=== PATIENT | male | born 1940 | race Caucasian/White ===

== ENCOUNTER 2021-05-12 08:47 | Inpatient (IN) | payer MEDICARE, MEDICAID ==
[~2021-05-12] VITALS: Ht 180.3 cm; Wt 79.4 kg
[~2021-05-12 08:47] MED LIST: ALBUTEROL1.25 MG/3 INH; ASPIRIN 325MG325 MG PO; ASPIRIN EC81 MG PO; AUGMENTIN 875-1 EACH PO; CARVEDILOL3.125 MG PO; COREG6.25 MG PO; ELIQUIS 2.5 MG2.5 MG PO; ELIQUIS5 MG PO; FUROSEMIDE40 MG PO; LIPITOR TAB 2020 MG PO; METOPROLOL SUCC50 MG PO; MULTAQ400 MG PO; OMEPRAZOLE20 MG PO; PHENERGAN 12.12.5 M1 PO; PHENERGAN 25 MG25 M1 PO; PLAVIX 75 MG TA75 MG PO; PLAVIX75 MG PO; PRAVACHOL20 MG PO; PREDNISONE10 MG PO; PRINIVIL20 MG PO; SYMBICORT 16010.2 GM INH; SYNTHROID100 MCG PO; TOPROL XL25 MG PO; VENTOLIN HFA 66.7 GM INH
[2021-05-12 09:40] LABS: HEMOGLOBIN 12.9 gm/dl (14.0-17.5); RED BLOOD COUNT 3.76 M/UL (4.20-5.50); WHITE BLOOD COUNT 19.8 K/UL (4.5-11.0)
[2021-05-12] MEDS ORDERED: HYDROCODONE-AC1 EACH PO (14:49)
[2021-05-12] MEDS ORDERED: COREG 12.5MG12.5 MG PO (15:03)
[2021-05-12] MEDS ORDERED: ALLERGY RELIEF10 M1 PO (15:04)
[2021-05-12] MEDS ORDERED: ALBUTEROL1.25 MG/3 INH (15:06)
[2021-05-12] MEDS ORDERED: FUROSEMIDE20 MG PO (15:08)
[2021-05-12] MEDS ORDERED: MONTELUKAST SOD10 MG PO (15:09)
[2021-05-12] MEDS ORDERED: TOPROL XL25 MG PO (15:10)
[2021-05-12] MEDS ORDERED: PROAMATINE 2.52.5 MG PO (15:12)
[2021-05-12] MEDS ORDERED: THERAGRAN M TAB1 EA PO (15:13)
[2021-05-12] MEDS ORDERED: DRISDOL1250 MCG PO (15:14)
[2021-05-13 03:06] LABS: HEMOGLOBIN 12.4 gm/dl (14.0-17.5); RED BLOOD COUNT 3.62 M/UL (4.20-5.50); WHITE BLOOD COUNT 15.2 K/UL (4.5-11.0)
[2021-05-13 03:43] LABS: BUN/CREATININE RATIO 29 (0-10)
[2021-05-14 03:56] LABS: HEMOGLOBIN 12.6 gm/dl (14.0-17.5); RED BLOOD COUNT 3.63 M/UL (4.20-5.50); WHITE BLOOD COUNT 13.6 K/UL (4.5-11.0)
[2021-05-14 04:00] LABS: BUN/CREATININE RATIO 35 (0-10)
[2021-05-15 05:01] LABS: HEMOGLOBIN 13.6 gm/dl (14.0-17.5)
[2021-05-15 05:06] LABS: RED BLOOD COUNT 4.05 M/UL (4.20-5.50); WHITE BLOOD COUNT 8.7 K/UL (4.5-11.0)
[2021-05-15 05:16] LABS: BUN/CREATININE RATIO 28 (0-10)
[2021-05-16 04:42] LABS: HEMOGLOBIN 14.1 gm/dl (14.0-17.5); RED BLOOD COUNT 4.1 M/UL (4.20-5.50); WHITE BLOOD COUNT 7.2 K/UL (4.5-11.0)
[2021-05-16 05:06] LABS: BUN/CREATININE RATIO 25 (0-10)
[2021-05-16] MEDS ORDERED: AMOX TR-K CLV1 EAC4 PO (15:43)
== END 2021-05-16 17:27 | disposition home or self-care (01) | DRG 193 ==
LOC: ER1 08:47 → CDU 12:11 → MED SURG 4 12:11
PROVIDERS: Emergency Medicine; Physician Assistant Medical; ADMIT Internal Medicine
DX: J18.9 Pneumonia, unspecified organism (principal); J96.21 Acute and chronic respiratory failure with hypoxia; I50.33 Acute on chronic diastolic (congestive) heart failure; Z66 Do not resuscitate; Z20.822 Contact with and (suspected) exposure to COVID-19; J44.0 Chronic obstructive pulmonary disease with (acute) lower respiratory infection; J44.1 Chronic obstructive pulmonary disease with (acute) exacerbation; C81.90 Hodgkin lymphoma, unspecified, unspecified site; F17.210 Nicotine dependence, cigarettes, uncomplicated; D69.6 Thrombocytopenia, unspecified; I25.10 Atherosclerotic heart disease of native coronary artery without angina pectoris; I11.0 Hypertensive heart disease with heart failure; E03.9 Hypothyroidism, unspecified; K21.9 Gastro-esophageal reflux disease without esophagitis; Z99.81 Dependence on supplemental oxygen; Z90.49 Acquired absence of other specified parts of digestive tract; Z82.49 Family history of ischemic heart disease and other diseases of the circulatory system
CPT/HCPCS: 0240U; 36415; 71045; 71046; 80048; 83690; 83735; 83880; 84484; 85025; 85027; 87040; 87070; 87205; 93005; 94640; 94664; 94760; 96374; 96375; 99285; J0456; J0696; J2930; J7030; J7050

== ENCOUNTER 2021-07-29 23:46 | Inpatient (IN) | payer MEDICARE, OTHER ==
[~2021-07-29] VITALS: Ht 165.1 cm; Wt 77.6 kg
[~2021-07-29 23:46] MED LIST changes: +ALLERGY RELIEF10 M1 PO; +AMOX TR-K CLV1 EAC4 PO; +COREG 12.5MG12.5 MG PO; +DRISDOL1250 MCG PO; +FUROSEMIDE20 MG PO; +HYDROCODONE-AC1 EACH PO; +MONTELUKAST SOD10 MG PO; +PROAMATINE 2.52.5 MG PO; +THERAGRAN M TAB1 EA PO
[2021-07-30 00:55] LABS: HEMOGLOBIN 13.6 gm/dl (14.0-17.5); RED BLOOD COUNT 3.93 M/UL (4.20-5.50)
[2021-07-30] MEDS ORDERED: ASPIRIN EC325 MG PO (11:55)
[2021-07-30] MEDS ORDERED: ASMANEX HFA13 G1 (11:56)
--- NOTE | 2021-07-31 02:42 | NUR ---
AT APPROXIMATELY 2200, PT BEGAN COMPLAINING OF INCREASED DIFFICULTY BREATHING. PHYSICIAN NOTIFIED, IV FLUIDS DISCONTINUED AND IV LASIX ADMINISTERED. URINE OUTPUT 700ML. PT PUT ON 2L NC FOR COMFORT, O2 CONTINUES TO STAY 95-100%. PHYSICIAN ARRIVED TO FLOOR, EXAMINED PT. CHEST X RAY ORDERED, AM LABS ORDERED, 40MG IV LASIX ADMINISTERED. PT STATES HIS BREATHING IS LESS DIFFICULT AT THIS TIME, RESTING COMFORTABLY WITH CALL ANDINO AT BEDSIDE.
[2021-07-31 04:06] LABS: HEMOGLOBIN 13.9 gm/dl (14.0-17.5); RED BLOOD COUNT 4.01 M/UL (4.20-5.50)
[2021-07-31 04:11] LABS: WHITE BLOOD COUNT 12.8 K/UL (4.5-11.0)
[2021-08-01 01:50] LABS: RED BLOOD COUNT 3.85 M/UL (4.20-5.50)
[2021-08-01 01:55] LABS: WHITE BLOOD COUNT 9.5 K/UL (4.5-11.0)
[2021-08-01 02:27] LABS: BUN/CREATININE RATIO 24 (0-10)
[2021-08-01] MEDS ORDERED: LIPITOR TAB 2020 MG PO (13:44)
[2021-08-01] MEDS ORDERED: PLAVIX 75 MG TA75 MG PO (13:44)
[2021-08-01] MEDS ORDERED: AMIODARONE HCL200 MG PO ×4 (13:48→14:04)
[2021-08-01] MEDS ORDERED: AMOX TR-K CLV1 EAC4 PO ×2 (13:53→14:04)
[2021-08-01] MEDS ORDERED: NITROSTAT 0.3100 TAB SL ×2 (14:01→14:04)
== END 2021-08-01 18:07 | disposition home or self-care (01) | DRG 682 ==
LOC: ER1 23:46 → PROG CARE 07-30 03:10 → CDU 07-30 03:10 → PROG CARE 07-30 08:18
PROVIDERS: Internal Medicine; Student in an Organized Health Care Education/Training Program; ADMIT Internal Medicine
DX: N17.9 Acute kidney failure, unspecified (principal); R57.0 Cardiogenic shock; Z20.822 Contact with and (suspected) exposure to COVID-19; J69.0 Pneumonitis due to inhalation of food and vomit; J96.21 Acute and chronic respiratory failure with hypoxia; I21.A1 Myocardial infarction type 2; I47.1 Supraventricular tachycardia; I50.32 Chronic diastolic (congestive) heart failure; R00.1 Bradycardia, unspecified; I25.10 Atherosclerotic heart disease of native coronary artery without angina pectoris; E86.0 Dehydration; I11.0 Hypertensive heart disease with heart failure; E87.6 Hypokalemia; E03.9 Hypothyroidism, unspecified; J44.9 Chronic obstructive pulmonary disease, unspecified; I48.0 Paroxysmal atrial fibrillation; Z79.01 Long term (current) use of anticoagulants; Z85.71 Personal history of Hodgkin lymphoma; Z79.82 Long term (current) use of aspirin; Z95.5 Presence of coronary angioplasty implant and graft; Z99.81 Dependence on supplemental oxygen; Z90.49 Acquired absence of other specified parts of digestive tract; Z82.49 Family history of ischemic heart disease and other diseases of the circulatory system; Z87.891 Personal history of nicotine dependence
CPT/HCPCS: ECHO; 36415; 71045; 80048; 80053; 82550; 82553; 83605; 83735; 83880; 84132; 84439; 84443; 84484; 85025; 85027; 85610; 85652; 85730; 86140; 93005; 93306; 94640; 94664; 94760; 99285; J0153; J0282; J1335; J1644; J1940; J2370; J7030; U0002

== ENCOUNTER 2021-12-15 18:02 | Emergency (ER) | payer MEDICARE ==
[~2021-12-15 18:02] MED LIST changes: +AMIODARONE HCL200 MG PO; +ASMANEX HFA13 G1; +ASPIRIN EC325 MG PO; +NITROSTAT 0.3100 TAB SL
== END 2021-12-15 19:03 | disposition left against medical advice (07) ==
LOC: ER1 18:02
DX: Z53.21 Procedure and treatment not carried out due to patient leaving prior to being seen by health care provider (principal)